=== PATIENT | female | born 1965 | race African-American/Black ===

== ENCOUNTER 2020-05-15 09:19 | Emergency (ER) | payer OTHER ==
[~2020-05-15] VITALS: Ht 154.9 cm; Wt 43.1 kg
[~2020-05-15 09:19] MED LIST: IBUPROFEN 600600 M1 PO; NOHOMEMEDICATIONS; ZANTAC 150MG T150 M1 PO; ZOFRAN ODT4 MG PO
[2020-05-15 10:14] LABS: HEMATOCRIT 35.4 % (37.0-47.0); HEMOGLOBIN 11.6 gm/dL (12.0-15.0); MCH 25.9 pg (26.0-34.0); MCHC 32.7 g/dL (28.0-37.0); MCV 79.1 fL (80.0-100.0); PLATELET COUNT 260 thou/uL (150-400); RBC 4.48 mil/uL (4.20-5.00); WBC 7.3 thou/uL (4.0-11.0)
[2020-05-15 10:23] LABS: CALCIUM 8.8 mg/dL (8.5-10.1); POTASSIUM 3.7 mmol/L (3.5-5.1)
[2020-05-15 10:29] LABS: ALBUMIN 3.8 g/dL (3.4-5.0); TOTAL BILIRUBIN 0.3 mg/dL (0.2-1.0); TOTAL PROTEIN 7.7 g/dL (6.4-8.2)
[2020-05-15 10:33] LABS: APTT 31.7 Seconds (24.5-32.8); PROTIME 10.6 Seconds (9.3-11.4)
[2020-05-15 10:44] LABS: ABSOLUTE NEUTROPHILS 4.5 thou/uL (1.4-8.2); PLATELET ESTIMATE NORMAL
[2020-05-15] MEDS ORDERED: PROCTOCREAM-HC30 GM RECTAL (11:16)
[2020-05-15 11:23] VITALS: BP 158/85
== END 2020-05-15 11:28 | disposition home or self-care (01) ==
LOC: ER 09:19
PROVIDERS: Emergency Medicine
DX: K64.4 Residual hemorrhoidal skin tags (principal); F32.9 Major depressive disorder, single episode, unspecified